=== PATIENT | female | born 1965 | race Caucasian/White ===

== ENCOUNTER 2022-05-29 03:41 | Emergency (ER) | payer BC ==
[~2022-05-29] VITALS: Ht 165.1 cm; Wt 63.5 kg
--- NOTE | 2022-05-29 03:55 | NUR ---
Arrival 57 y/o white female ambulatory to ED accompanied by son . c/o bump with white head to base of hairline left occipital area. monitors applied. vital signs obtained. Dr. Silva notified.
[2022-05-29 04:03] VITALS: BP 144/90
--- NOTE | 2022-05-29 04:40 | ER.PDOC ---
General Chief Complaint: Requesting Medical Care Stated Complaint: KNOTS ON HEAD Time seen by MD: 04:10 Source: patient, family Exam Limitations: no limitations History of Present Illness Initial Comments 57-year-old female who comes in complaining of a bump on the back of her head, she claims she is concerned that she is having staph infection. No fever or chills. No drainage. Timing/Duration: 24 hours Location: neck Past Medical History Surgical History: no surgical history Social History Alcohol Use: rarely Drug Use: Meth All Other Systems: Reviewed and Negative Physical Exam General Appearance: alert Skin: tender indurated area (small 1x1 cm area with induration, slight erythema) With: tenderness, swelling, induration Extremities: no edema EENT: eyes nml inspection Neck: trachea midline Respiratory: no resp. distress CVS: reg. rate & rhythm NEURO/PSYCH: oriented x 3 Results/Orders Results/Orders Vital Signs Date Time Temp Pulse Resp B/P (MAP) Pulse Ox O2 Delivery O2 Flow Rate FiO2 05/29/22 04:03 97.8 81 18 05/29/22 04:03 97.8 81 18 144/90 (108) 96 Room Air* 0 21 05/29/22 04:03 97.8 81 18 96 Progress Progress Looks like it started as an ingrown hair, slight redness, counseled her it does not look like it needs antibiotics, try warm shower and compress, call pcp if it is not getting better ER DEPART Departure Time of Disposition: 04:39 Disposition: 01 HOME / SELF CARE / HOMELESS Impression: Primary Impression: Boil of head or scalp Condition: Stable Referrals: PCP,UNKNOWN (PCP) PRIMARY CARE PROVIDER Duration or Time Spent with Pa: LENIN Edwards MD May 29, 2022 04:40
== END 2022-05-29 04:47 | disposition home or self-care (01) ==
LOC: ER 03:41
DX: L02.821 Furuncle of head [any part, except face] (principal)
CPT/HCPCS: 99281